=== PATIENT | female | born 1945 | race Caucasian/White ===

== ENCOUNTER 2017-07-14 08:13 | Day surgery (SDC) | payer BC ==
[2017-07-14] MEDS ORDERED: ASPIRIN EC 325 MG TAB PO ONE (08:16)
[2017-07-14] MEDS ORDERED: DIAZEPAM 5 MG TAB PO ONE (08:16)
[2017-07-14] MEDS ORDERED: FAMOTIDINE 20 MG TAB PO ONE (08:16)
[2017-07-14] MEDS ORDERED: NS 1,000 ML IV ONE (08:16)
[2017-07-14] MEDS ORDERED: diphenhydrAMINE 25 MG CAP PO ONE (08:16)
--- NOTE | 2017-07-14 08:44 | CPEKG ---
Heart Rate: 83 RR Interval: 723 P-R Interval: 160 QRSD Interval: 66 QT Interval: 372 QTC Interval: 437 P [place]: 63 QRS [place]: 47 T Wave [place]: 38 EKG Severity - ABNORMAL ECG - EKG Impression: SINUS RHYTHM EKG Impression: MULTIPLE ATRIAL PREMATURE COMPLEXES Electronically Signed By: Brock Calzada 14-Jul-2017 17:20:47
[2017-07-14 08:57] LABS: PLATELET COUNT 205 10^3/uL (150-400)
[2017-07-14 09:05] LABS: INR 0.94 (0.83-1.16); PROTIME(PATIENT) 12.8 SEC (12.0-15.0)
--- NOTE | 2017-07-14 10:17 | PDPROPOC ---
Sedation Plan of Care Sedation Plan of Care: vital signs stable, mental status noted, patient educated of risks, benefits, alternatives, patient can tolerate sedation ASA Classification: ASA 1 Planned drugs: fentanyl, midazolam Mallampati Score: Class 1 Mallampati Reference Image: Patient passed 3-3-2 rule?: Yes
--- NOTE | 2017-07-14 10:17 | PDHPUP ---
History & Physical Update H&P update statement: This history and physical update is based on an assessment of the patient which was completed after admission or registration (within 24 hours), but prior to the surgery/procedure. H&P update: H&P reviewed & patient examined, no change in patient's condition since H&P completed
[2017-07-14] MEDS ORDERED: LIDOCAINE 1% 300 MG/30 ML SDV ONE (12:27)
[2017-07-14] MEDS ORDERED: HEPARIN 10,000 UNIT/10 ML MDV (1,000 UNIT/ML) ONE (12:27)
[2017-07-14] MEDS ORDERED: VERAPAMIL 5 MG/2 ML VIAL ONE (12:27)
[2017-07-14] MEDS ORDERED: MIDAZOLAM 2 MG/2 ML VIAL ONE ×2 (12:27→13:04)
[2017-07-14] MEDS ORDERED: fentaNYL 100 MCG/2 ML INJ ONE (12:27)
[2017-07-14] MEDS ORDERED: IOPAMIDOL (ISOVUE-370) 150 ML BTL IV ONE (12:27)
[2017-07-14] MEDS ORDERED: NITROGLYCERIN 0.4 MG BTL SL PRN (13:17)
[2017-07-14] MEDS ORDERED: ATROPINE SULFATE 1 MG/10 ML SYR IVP PRN (13:17)
[2017-07-14] MEDS ORDERED: ONDANSETRON 4 MG/2 ML VIAL IVP PRN (13:17)
[2017-07-14] MEDS ORDERED: HYDROCODONE/APAP 5/325 TAB PO PRN (13:17)
[2017-07-14] MEDS ORDERED: OXYCODONE/APAP 5/325 TAB PO PRN (13:17)
--- NOTE | 2017-07-14 13:23 | PDDXCAT ---
Diagnostic Cath Note - . 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 Appropriate bifurcation into the left anterior descending and circumflex distributions. Angiographically free of disease. LAD: Large caliber vessel. Single small proximal diagonal branch. Angiographically free of disease. Tortuous vessels consistent with hypertension. LCX: Large caliber vessel. Extremely tortuous consist distant with a history of hypertension. There are 3 obtuse marginal branches identified as well as a posterolateral branch. The circumflex and the obtuse marginal branches are free of disease. RCA: Moderate caliber vessel. Non dominant. Angiographically free of disease. LVEF: Greater than 70%. No focal wall motion abnormalities. 1+ mitral regurgitation. Wall motion: Normal. Complications: None. Estimated blood loss: <50ml Closure method: TR Band Assessment: 1. Tortuous coronary arteries consistent with a history of hypertension without significant stenoses identified. 2. Hyperdynamic left ventricular systolic function without wall motion abnormalities. 3. History of nonsustained VT noted on stress testing. 4. Poorly controlled hypertension. Plan: At this point, the patient will be treated aggressively with respect to risk factors. Intervention: None.
[2017-07-14] MEDS ORDERED: CARVEDILOL 6.25 MG TAB PO SCH (18:00)
== END 2017-07-14 18:17 | disposition home or self-care (01) ==
LOC: FCATH 08:13
PROVIDERS: ATTEND Internal Medicine Cardiovascular Disease
DX: I25.10 Atherosclerotic heart disease of native coronary artery without angina pectoris (principal); I10 Essential (primary) hypertension; I47.2 Ventricular tachycardia; J44.9 Chronic obstructive pulmonary disease, unspecified
CPT/HCPCS: 93005; 93458; C1769; J1644; J2250; J3010; Q9967